=== PATIENT | male | born 1960 | race Caucasian/White ===

== ENCOUNTER 2018-01-29 08:10 | Emergency (ER) | payer BC ==
[2018-01-29 08:26] VITALS: BP 149/104
--- NOTE | 2018-01-29 10:07 | UC ---
Hypertension HPI - HPI Summary HPI Summary: The patient is a 57-year-old male with history of obstructive sleep apnea. A few days ago he changed the style of his CPAP mask. He has had trouble adjusting to it. Last night he awoke with left sided ear pain and the sensation that he was getting too much pressure into his left nostril and sinuses. He tore the mask off and his symptoms improved. He states he is an anxious man and he was up most of the night. He denies any chest pain or shortness of breath. His left ear pain has resolved. A few days ago he felt like he had a cold. Also complains of bilateral lower extremity bug bites. Worse around his right foot and ankle. He has been excoriating them and is concerned that there may be an infection there. He is also complaining of chronic right Achilles tendon pain. It has been going on for months. Denies any known injury. He said the pain varies with the type of footwear he has on and with activity. At work the work nurse checked his blood pressure and it was elevated. He decided to come in and be evaluated. - History of Current Complaint Chief Complaint: UCGeneralIllness Stated Complaint: HIGH BLOOD Time Seen by Provider: 01/29/18 09:19 Hx Obtained From: Patient Onset/Duration: Sudden Onset Timing: Constant Aggravating Factor(s): Other - stress Alleviating Factor(s): Nothing Associated Signs And Symptoms: Positive: Anxiety. Negative: Chest Pain, Vision Changes, Recent Stress, Headaches, Numbness, Tingling, Weakness, Dizziness, SOB , Swelling Current Medications: ACEI - Allergies/Home Medications Allergies/Adverse Reactions: Allergies Allergy/AdvReac Type Severity Reaction Status Date / Time No Known Allergies Allergy Verified 01/29/18 08:43 Home Medications: Home Medications Latanoprost 0.005%* [Xalatan 0.005%*] 1 % BOTH EYES DAILY 01/29/18 [History Confirmed 01/29/18] PMH/Surg Hx/FS Hx/Imm Hx Previously Healthy: Yes - ATA Endocrine History: Dyslipidemia Cardiovascular History: Hypertension Other History Of: Negative For: HIV, Hepatitis B, Hepatitis C - Surgical History Surgical History: Yes Surgery Procedure, Year, and Place: KNEE LEFT. UVULECTOMY - Social History Alcohol Use: Daily Substance Use Type: Marijuana Substance Use Comment - Amount & Last Used: OCCASIONALLY Smoking Status (MU): Never Smoked Tobacco When Did the Patient Quit Smoking/Using Tobacco: 20 YRS AGO Review of Systems Constitutional: Negative Skin: Negative Eyes: Negative ENT: Ear Ache - resolved, Sinus Pain/Tenderness - resolved Respiratory: Negative Cardiovascular: Negative Gastrointestinal: Negative Genitourinary: Negative Motor: Negative Neurovascular: Negative Musculoskeletal: Negative Neurological: Negative Psychological: Negative All Other Systems Reviewed And Are Negative: Yes Physical Exam Triage Information Reviewed: Yes Appearance: Well-Appearing, No Pain Distress, Well-Nourished Vital Signs: Initial Vital Signs Temp 98.1 F 01/29/18 08:18 Pulse 125 01/29/18 08:18 Resp 20 01/29/18 08:18 BP 149/104 01/29/18 08:18 Pulse Ox 97 01/29/18 08:18 Vital Signs Reviewed: Yes Eyes: Positive: Conjunctiva Clear ENT: Positive: Hearing grossly normal, Other - absent uvula. Negative: Nasal congestion, Nasal drainage, Dental tenderness, Sinus tenderness Neck: Positive: Supple, Nontender, No Lymphadenopathy Respiratory: Positive: Lungs clear, Normal breath sounds, No respiratory distress, No accessory muscle use Cardiovascular: Positive: RRR, No Murmur, Tachycardia Abdomen Description: Positive: Nontender, No Organomegaly, Soft Musculoskeletal: Positive: ROM Intact, No Edema, Other: - tender prox left achillis Neurological: Positive: Alert Psychological Exam: Normal Skin: Positive: Other - excoriated bug bites both LE Diagnostics - EKG Cardiac Rate: Tachycardia - rate 100 Cardiac Rhythm: Sinus: Normal Ectopy: None ST Segment: Normal EKG Comparison: No Significant Change - since 06/21/10, Q in lead three Hypertension Course/Dx - Differential Dx/Diagnosis Provider Diagnoses: elevate blood pressure. insect bites. right achilles pain Discharge - Sign-Out/Discharge Documenting (check all that apply): Patient Departure All imaging exams completed and their final reports reviewed: No Studies - Discharge Plan Condition: Stable Disposition: HOME Referrals: Jose Goldstein MD [Primary Care Provider] - - Billing Disposition and Condition Condition: STABLE Disposition: Home
== END 2018-01-29 10:20 | disposition home or self-care (01) ==
LOC: UCEAST 08:10
DX: R03.0 Elevated blood-pressure reading, without diagnosis of hypertension (principal); S80.862A Insect bite (nonvenomous), left lower leg, initial encounter; S80.861A Insect bite (nonvenomous), right lower leg, initial encounter; W57.XXXA Bitten or stung by nonvenomous insect and other nonvenomous arthropods, initial encounter; Y93.9 Activity, unspecified; Y92.9 Unspecified place or not applicable; M76.61 Achilles tendinitis, right leg; R00.0 Tachycardia, unspecified; Z87.891 Personal history of nicotine dependence
CPT/HCPCS: 93005; 99211; G0463

== ENCOUNTER 2018-01-31 07:41 | Emergency (ER) | payer BC ==
--- NOTE | 2018-01-31 08:53 | ED ---
Lower Extremity - HPI Summary HPI Summary: This patient is a 57 year old M presenting to [facility] with a chief complaint of RLE redness, swelling, and pain that began a couple weeks ago after being bitten by sand fleas. Since then patient has developed a general illness, patient has healing wounds to the back of the right calf. The patient rates the pain 7/10 in severity. Patient reports sleep disruption, dry cough, congestion, diaphoresis, and right thigh pain. Patient denies fever. Pt drives long distance often, he has commuted 4 hours for the last 12 years one weekends. Pt was seen at 01-29-18 but his RLE redness has progressed since then even with topical abx use. Once he used this cream the redness began. Hx sleep apnea and anxiety. - History of Current Complaint Chief Complaint: EDGeneral Stated Complaint: GENERAL ILLNESS Time Seen by Provider: 01/31/18 08:26 Hx Obtained From: Patient Mechanism Of Injury: Other - flea bites Onset/Duration: Weeks Severity Initially: Moderate Severity Currently: Moderate Pain Intensity: 7 Pain Scale Used: 0-10 Numeric Timing: Constant Location: Is Discrete @ - RLE Associated Signs And Symptoms: Positive: Redness Able to Bear Weight: Yes - Allergies/Home Medications Allergies/Adverse Reactions: Allergies Allergy/AdvReac Type Severity Reaction Status Date / Time No Known Allergies Allergy Verified 01/29/18 08:43 PMH/Surg Hx/FS Hx/Imm Hx Endocrine/Hematology History: Denies: Hx Diabetes, Hx Thyroid Disease Cardiovascular History: Reports: Hx Hypertension Denies: Hx Congestive Heart Failure, Hx Deep Vein Thrombosis, Hx Myocardial Infarction, Hx Pacemaker/ICD Respiratory History: Denies: Hx Asthma, Hx Chronic Obstructive Pulmonary Disease (COPD), Hx Lung Cancer, Hx Pneumonia, Hx Pulmonary Embolism GI History: Denies: Hx Gall Bladder Disease, Hx Gastrointestinal Bleed, Hx Ulcer, Hx Urosepsis History: Denies: Hx Kidney Stones, Hx Renal Disease Neurological History: Denies: Hx Dementia, Hx Migraine, Hx Seizures, Hx Transient Ischemic Attacks (TIA) Psychiatric History: Denies: Hx Anxiety, Hx Depression, Hx Schizophrenia, Hx Bipolar Disorder - Surgical History Surgery Procedure, Year, and Place: KNEE LEFT. UVULECTOMY Infectious Disease History: No Infectious Disease History: Denies: Hx Hepatitis, Hx Human Immunodeficiency Virus (HIV), Traveled Outside the [place] in Last 30 Days - Family History Known Family History: Positive: Hypertension Negative: Diabetes, Blood Disorder - Social History Occupation: Employed Full-time - teacher Lives: Alone Alcohol Use: Daily Substance Use Type: Reports: Marijuana Substance Use Comment - Amount & Last Used: OCCASIONALLY Smoking Status (MU): Never Smoked Tobacco Review of Systems Positive: Skin Diaphoresis, Other - sleep disruption Positive: Other - nasal congestion Positive: Cough Musculoskeletal: Other - right thigh pain Positive: Edema - RLE , Other - RLE pain, redness All Other Systems Reviewed And Are Negative: Yes Physical Exam - Summary Physical Exam Summary: Appearance: The patient is well-nourished in no acute distress and in no acute pain. Skin: Erythematous right leg w/ healing open area on the posterior ankle. There may be a small lymph node in common femoral canal that is tender HEENT: The head is normocephalic and atraumatic. The pupils are equal and reactive. The conjunctivae are clear and without drainage. Nares are patent and without drainage. Mouth reveals moist mucous membranes and the throat is without erythema and exudate. The external ears are intact. The ear canals are patent and without drainage. The tympanic membranes are intact. Neck: The neck is supple with full range of motion and non-tender. There are no carotid bruits. There is no neck vein distension. Respiratory: Chest is non-tender. Lungs are clear to auscultation and breath sounds are symmetrical and equal. Cardiovascular: Heart is regular rate and rhythm. There is no murmur or rub auscultated. There is no peripheral edema and pulses are symmetrical and equal. Abdomen: The abdomen is soft and non-tender. There are normal bowel sounds heard in all four quadrants and there is no organomegaly palpated. Musculoskeletal: There is no back tenderness noted. Extremities are non-tender with full range of motion. There is good capillary refill. There is no peripheral edema or calf tenderness elicited. Neurological: Patient is alert and oriented to person, place and time. The patient has symmetrical motor strength in all four extremities. Cranial nerves are grossly intact. Deep tendon reflexes are symmetrical and equal in all four extremities. Psychiatric: The patient has an appropriate affect and does not exhibit any anxiety or depression. Triage Information Reviewed: Yes Vital Signs On Initial Exam: Initial Vitals Temp Pulse Resp BP Pulse Ox 97.4 F 84 16 147/85 98 01/31/18 07:50 01/31/18 07:50 01/31/18 07:50 01/31/18 07:50 01/31/18 07:50 Vital Signs Reviewed: Yes Diagnostics - Vital Signs Vital Signs Temp Pulse Resp BP Pulse Ox 01/31/18 07:50 97.4 F 84 16 147/85 98 - Laboratory Result Diagrams: 01/31/18 09:57 01/31/18 09:57 Lab Statement: Any lab studies that have been ordered have been reviewed, and results considered in the medical decision making process. - Radiology CXR Radiology Interpretation Completed By: Radiologist - NO ACTIVE CARDIOPULMONARY DISEASE IS NOTED. ED physician has reviewed this radiology report. - Additional Comments Diagnostic Additional Comments: Venous Doppler reveals, per radiologist: NO EVIDENCE OF DEEP VENOUS THROMBOSIS IS IDENTIFIED. ED physician has reviewed this radiology report. Re-Evaluation - Re-Evaluation First Eval Re-Evaluation Time: 11:40 Change: Unchanged Comment: I discussed test results and lab results with the patient. Lower Extremity Course/Dx - Course Course Of Treatment: Mr. Castro presented with an erythematous tender right lower leg. He had some insect bites that were very itchy and had been scratching his leg quite a bit of week ago. He began to get infected and [facility] mupirocin ointment. The wounds looked better to him but now his proximal leg has started to bother him and he has a sore area in his medial right proximal thigh. I think that some lymphadenopathy from the cellulitis, his labs are unremarkable and his vital signs are stable. I will treat him with by mouth Keflex and recommended close follow-up. - Diagnoses Provider Diagnoses: Cellulitis Discharge - Sign-Out/Discharge Documenting (check all that apply): Patient Departure - Discharge Plan Condition: Critical Disposition: HOME Prescriptions: Cephalexin CAP* [Keflex CAP*] 500 mg PO QID #40 cap oxyCODONE/Acetamin 5/325 MG* [Percocet 5/325 TAB*] 1 tab PO Q6H PRN #20 tab MDD 4 PRN Reason: Pain Patient Education Materials: Cellulitis (ED) Referrals: Jose Goldstein MD [Primary Care Provider] - 2 Days Additional Instructions: RETURN TO THE EMERGENCY DEPARTMENT FOR CHANGING OR WORSENING SYMPTOMS - Billing Disposition and Condition Condition: CRITICAL Disposition: Home - Attestation Statements Document Initiated by Benoite: Yes Documenting Scribe: Marcello Corrigan Provider For Whom Scribe is Documenting (Include Credential): Morales Ward Scribeulogio Attestation: I, Marcello Corrigan, scribed for Morales Ward on 01/31/18 at 1831. Scribe Documentation Reviewed: Yes Provider Attestation: The documentation as recorded by the Marcello laureano accurately reflects the service I personally performed and the decisions made by me, Morales Ward
--- NOTE | 2018-01-31 10:12 | RAD ---
Indication: Cough. Single frontal view of the chest performed at 0937 hours was reviewed. Comparison is made with previous exam dated June 21, 2010. No mediastinal shift is noted. Heart is of normal size and configuration. Lung bishop appear clear. IMPRESSION: NO ACTIVE CARDIOPULMONARY DISEASE IS NOTED.
[2018-01-31 10:16] LABS: ABS Basophils 0.1 10^3/ul (0-0.2); ABS Eosinophils 0.1 10^3/ul (0-0.6); ABS Lymphocytes 1.9 10^3/ul (1.0-4.8); ABS Monocytes 1.3 10^3/ul (0-0.8); ABS Neutrophils 6.4 10^3/ul (1.5-7.7); ABS Nucleated RBC 0 10^3/ul; Eosinophil % 0.7 % (0-6); Hematocrit 43 % (42-52); Hemoglobin 14.9 g/dl (14.0-18.0); Lymphocyte % 19.2 % (25-47); Mean Corpuscular HGB Conc 35 g/dl (31-36); Mean Corpuscular Hemoglobin 32 pg (27-31); Mean Corpuscular Volume 94 fL (80-94); Nucleated Red Blood Cells % 0.1; Platelet Count 129 10^3/ul (150-450); Red Blood Count 4.63 10^6/ul (4.00-5.40); Red Cell Distribution Width 13 % (10.5-15); White Blood Count 9.7 10^3/ul (3.5-10.8)
[2018-01-31 10:21] LABS: INR 1.01 (0.77-1.02)
[2018-01-31 10:31] LABS: EGFR Non-African American 73.4 (>60)
[2018-01-31] MEDS ORDERED: Cephalexin CAP* 500 MG PO ONE (11:43)
[2018-01-31] MEDS ORDERED: oxyCODONE/Acetamin 5/325 MG* TAB PO ONE (13:02)
--- NOTE | 2018-01-31 14:05 | RAD ---
Indication: Right leg edema and pain. Duplex Doppler sonography of the deep venous system of the right lower extremity deep venous system was performed. Bilaterally the common femoral veins appear patent and compressible. Right proximal greater saphenous vein, proximal deep femoral vein, femoral vein, popliteal vein, posterior tibial veins and peroneal veins appear patent and compressible.12 mm lymph node is noted in the right inguinal region. IMPRESSION: NO EVIDENCE OF DEEP VENOUS THROMBOSIS IS IDENTIFIED.
[2018-01-31 15:43] VITALS: BP 138/89
== END 2018-01-31 15:43 | disposition home or self-care (01) ==
LOC: ED 07:41
DX: L03.115 Cellulitis of right lower limb (principal); R09.81 Nasal congestion; R05 Cough; R60.0 Localized edema; M79.651 Pain in right thigh
CPT/HCPCS: 36415; 71045; 80053; 83605; 85025; 85379; 85610; 86140; 87040; 99284; A9270-GY